=== PATIENT | female | born 1980 | race Caucasian/White ===

== ENCOUNTER 2017-01-21 14:30 | Outpatient (CLI) | payer OTHER | END 2017-01-21 14:31 | disposition home or self-care (01) | LOC: LAB.R 14:30 | PROVIDERS: ATTEND Physician Assistant Medical | DX: J02.9 Acute pharyngitis, unspecified (principal) | CPT/HCPCS: 87070 ==

== ENCOUNTER 2019-05-07 15:48 | Outpatient (CLI) | payer OTHER, MEDICAID ==
[2019-05-07 19:03] LABS: BASOPHILS # (AUTO) 0.1 10^3/uL (0.0-0.1); BASOPHILS % (AUTO) 1.4 %; EOSINOPHILS # (AUTO) 0.3 10^3/uL (0.0-0.7); EOSINOPHILS % (AUTO) 3.9 %; HGB - HEMOGLOBIN 13.5 g/dL (12.0-16.0); LYMPHOCYTES # (AUTO) 4.1 10^3/uL (1.5-3.5); LYMPHOCYTES % (AUTO) 53.2 %; MEAN CORPUSCULAR HEMOGLOBIN 28.3 pg (27.0-31.0); MEAN CORPUSCULAR HGB CONC 31.6 g/dL (32.0-36.0); MEAN CORPUSCULAR VOLUME 89.5 fL (81.0-99.0); MEAN PLATELET VOLUME 10.4 fL (7.9-10.8); MONOCYTES # (AUTO) 0.6 10^3/uL (0.0-1.0); MONOCYTES % (AUTO) 7.1 %; NEUTROPHILS # (AUTO) 2.6 10^3/uL (1.5-6.6); NEUTROPHILS % (AUTO) 34.1 %; PLT - PLATELET COUNT 342 10^3/uL (130-450); RED BLOOD COUNT 4.77 10^6/uL (4.20-5.40); RED CELL DISTRIBUTION WIDTH 13.2 % (12.0-15.0); WHITE BLOOD COUNT 7.7 x10^3/uL (4.8-10.8)
[2019-05-07 19:21] LABS: ALBUMIN 4.3 g/dL (3.2-5.5); ALBUMIN/GLOBULIN RATIO 1.2 (1.0-2.2); BILIRUBIN,TOTAL 0.5 mg/dL (0.2-1.0); CALCIUM 9.7 mg/dL (8.5-10.3); CREATININE 0.7 mg/dL (0.4-1.0)
[2019-05-07 19:24] LABS: HEMOGLOBIN A1C 0.49 g/dL; HEMOGLOBIN A1C % 5.4 % (4.6-6.2)
== END 2019-05-07 23:59 | disposition home or self-care (01) ==
LOC: LAB.WCP 15:48
PROVIDERS: ATTEND Physician Assistant
DX: R53.83 Other fatigue (principal)
CPT/HCPCS: 36415; 80053; 83036; 84443; 85025

== ENCOUNTER 2019-05-12 08:20 | Outpatient (CLI) | payer OTHER, MEDICAID ==
--- NOTE | 2019-05-14 11:42 | Ultrasound Report ---
Reason: WEIGHT LOSS, ABDOMINAL PAIN, ELEVATED LFTS Procedure Date: 05/12/2019 Accession Number: [id number] / [id number] Procedure: US - Abdomen Complete CPT Code: FULL RESULT: EXAM: ABDOMEN ULTRASOUND EXAM DATE: 05/12/2019 08:27 AM. CLINICAL HISTORY: WEIGHT LOSS, ABDOMINAL PAIN, ELEVATED LFTS. COMPARISON: ABDOMEN/PELVIS 11/24/2013 7:33 PM ABDOMEN 04/05/2012 2:48 PM. TECHNIQUE: Real-time scanning was performed with static images obtained. FINDINGS: Liver: Normal in size and heterogeneous in echotexture. 13.9 cm. Main portal vein flow: Hepatopetal. Gallbladder: Normal. No stones, wall thickening, or sonographic Vivas's sign. Biliary System: Common bile duct measures 4 mm. No intrahepatic or extrahepatic ductal dilatation. Pancreas: Imaged portion is unremarkable. Kidneys: Right: 11.3 cm longitudinally. No contour-deforming mass, stones, or hydronephrosis. Left: 12 cm longitudinally. No contour-deforming mass, stones, or hydronephrosis. Spleen: 11.9 cm. Normal in size and echotexture. Aorta and Inferior Vena Cava: Unremarkable. Other: No free fluid. IMPRESSION: Heterogeneous hepatic echotexture without focal hepatic pathology. No gallstones. Otherwise negative abdomen ultrasound. [facility]
== END 2019-05-12 08:21 | disposition home or self-care (01) ==
LOC: DI 08:20
PROVIDERS: ATTEND Physician Assistant
DX: R63.4 Abnormal weight loss (principal); R10.9 Unspecified abdominal pain; R79.89 Other specified abnormal findings of blood chemistry
CPT/HCPCS: 76700

== ENCOUNTER 2019-05-16 08:15 | Outpatient (CLI) | payer OTHER, MEDICAID ==
[2019-05-16 12:48] LABS: ALBUMIN 3.9 g/dL (3.2-5.5); ALBUMIN/GLOBULIN RATIO 1.1 (1.0-2.2); BILIRUBIN,TOTAL 0.7 mg/dL (0.2-1.0); CALCIUM 9.5 mg/dL (8.5-10.3); CREATININE 0.8 mg/dL (0.4-1.0); TOTAL PROTEIN 7.6 g/dL (6.7-8.2)
[2019-05-17 11:42] LABS: HEPATITIS B SURFACE ANTIGEN NON-REACTIVE (NON-REACTIVE); HEPATITIS C ANTIBODY NON-REACTIVE (NON-REACTIVE)
== END 2019-05-16 23:59 | disposition home or self-care (01) ==
LOC: LAB.WCP 08:15
PROVIDERS: ATTEND Physician Assistant
DX: R79.89 Other specified abnormal findings of blood chemistry (principal)
CPT/HCPCS: 36415; 80053; 86317; 86709; 86803; 87340

== ENCOUNTER 2019-05-22 15:33 | Outpatient (CLI) | payer OTHER, MEDICAID ==
[2019-05-22] MEDS ORDERED: IOVERSOL 320 50 ML VIAL ONE (15:50)
[2019-05-22] MEDS ORDERED: IOVERSOL 320 100 ML VIAL IVP ONE (15:50)
[2019-05-22] MEDS: IOVERSOL 320 50 ML VIAL PO ONE (17:15)
[2019-05-22] MEDS: IOVERSOL 320 100 ML VIAL IVP ONE (17:15)
--- NOTE | 2019-05-23 02:44 | CT Report ---
Reason: ABDOMINAL PAIN, WEIGHT LOSS Procedure Date: 05/22/2019 Accession Number: [id number] / [id number] Procedure: CT - Abdomen/Pelvis W CPT Code: FULL RESULT: EXAM: CT ABDOMEN AND PELVIS EXAM DATE: 05/22/2019 05:14 PM. CLINICAL HISTORY: ABDOMINAL PAIN, WEIGHT LOSS. COMPARISONS: ABDOMEN/PELVIS W/ 11/24/2013 7:33 PM. TECHNIQUE: Routine helical CT imaging was performed through the abdomen and pelvis. IV contrast: OPTI 320 100ML. Enteric contrast: Yes. Reconstructions: Coronal and sagittal. In accordance with CT protocol optimization, one or more of the following dose reduction techniques were utilized for this exam: automated exposure control, adjustment of mA and/or KV based on patient size, or use of iterative reconstructive technique. FINDINGS: Lung Bases: Unremarkable. Liver: Normal. No masses. Gallbladder/Bile Ducts: Unremarkable. Spleen: Normal. Pancreas: Normal. Adrenal Glands: Normal. Kidneys: Normal. No masses or hydronephrosis. Peritoneal Cavity/Bowel: Normal. No free fluid, free air or adenopathy. No masses or acute inflammatory process. There is a small hiatal hernia. There are no inflammatory changes of the colon. No evidence for appendicitis. Pelvic Organs: Normal. The bladder and visualized pelvic organs are within normal limits. Vasculature: No aneurysms or other significant abnormality. Bones: No significant abnormality. Other: None. IMPRESSION: 1. Small hiatal hernia. 2. Otherwise negative CT scan abdomen and pelvis. RAD[facility]
== END 2019-05-22 15:34 | disposition home or self-care (01) ==
LOC: DI 15:33
PROVIDERS: ATTEND Physician Assistant
DX: K44.9 Diaphragmatic hernia without obstruction or gangrene (principal)
CPT/HCPCS: 74177; Q9967

== ENCOUNTER 2019-06-25 09:53 | Day surgery (SDC) | payer OTHER, MEDICAID ==
[2019-06-25] MEDS ORDERED: fentaNYL 250 MCG/5 ML VIAL IVP ONE (09:54)
[2019-06-25] MEDS ORDERED: MIDAZOLAM 2 MG/2 ML VIAL IVP ONE (09:54)
[2019-06-25] MEDS ORDERED: LACTATED RINGERS 1,000 ML IV ONE (10:32)
[2019-06-25 10:55] LABS: HCG UR QUAL NEGATIVE
[2019-06-25] MEDS ORDERED: LIDO GARGLE 30 ML BOTTLE ONE (11:11)
[2019-06-25] MEDS ORDERED: LIDO GARGLE 30 ML BOTTLE PO ONE (11:40)
[2019-06-25 12:33] VITALS: BP 109/67
== END 2019-06-25 09:54 | disposition home or self-care (01) ==
LOC: SDS 09:53
PROVIDERS: ATTEND Internal Medicine Gastroenterology
PROC: 0DB68ZX Excision of Stomach, Via Natural or Artificial Opening Endoscopic, Diagnostic (ICD-10-PCS; 2019-06-25)
PROC: 0DB98ZX Excision of Duodenum, Via Natural or Artificial Opening Endoscopic, Diagnostic (ICD-10-PCS; principal; 2019-06-25 10:30)
DX: R10.13 Epigastric pain (principal); R63.4 Abnormal weight loss; R68.81 Early satiety; K44.9 Diaphragmatic hernia without obstruction or gangrene; F17.210 Nicotine dependence, cigarettes, uncomplicated; Z79.899 Other long term (current) drug therapy; Z68.26 Body mass index [BMI] 26.0-26.9, adult
CPT/HCPCS: 43239; 81025; A9270; J7120

== ENCOUNTER 2020-05-09 08:00 | Outpatient (CLI) | payer OTHER, MEDICAID ==
[2020-05-09 18:32] LABS: BASOPHILS # (AUTO) 0.1 10^3/uL (0.0-0.1); BASOPHILS % (AUTO) 1.1 %; EOSINOPHILS # (AUTO) 0.2 10^3/uL (0.0-0.7); EOSINOPHILS % (AUTO) 2.7 %; HGB - HEMOGLOBIN 13.7 g/dL (12.0-16.0); LYMPHOCYTES # (AUTO) 3.6 10^3/uL (1.5-3.5); LYMPHOCYTES % (AUTO) 44.1 %; MEAN CORPUSCULAR HEMOGLOBIN 30.4 pg (27.0-31.0); MEAN CORPUSCULAR HGB CONC 33.7 g/dL (32.0-36.0); MEAN CORPUSCULAR VOLUME 90.2 fL (81.0-99.0); MEAN PLATELET VOLUME 10.3 fL (7.9-10.8); MONOCYTES # (AUTO) 0.4 10^3/uL (0.0-1.0); MONOCYTES % (AUTO) 5.3 %; NEUTROPHILS # (AUTO) 3.8 10^3/uL (1.5-6.6); NEUTROPHILS % (AUTO) 46.6 %; PLT - PLATELET COUNT 322 10^3/uL (130-450); RED CELL DISTRIBUTION WIDTH 12.7 % (12.0-15.0); WHITE BLOOD COUNT 8.1 x10^3/uL (4.8-10.8)
[2020-05-09 19:37] LABS: ALBUMIN 4.4 g/dL (3.2-5.5); ALBUMIN/GLOBULIN RATIO 1.4 (1.0-2.2); ALKALINE PHOSPHATASE 61 IU/L (42-121); ALT ALANINE AMINOTRANSFERASE 19 IU/L (10-60); AST ASPARTATE AMINOTRANSFERASE 18 IU/L (10-42); BILIRUBIN,TOTAL 0.4 mg/dL (0.2-1.0); BUN - BLOOD UREA NITROGEN 10 mg/dL (6-20); CALCIUM 9.5 mg/dL (8.5-10.3); CARBON DIOXIDE - CO2 25 mmol/L (21-32); CHLORIDE 102 mmol/L (101-111); CHOL/HDL RATIO 4.9 (<4.4); CHOLESTEROL 252 mg/dL; CREATININE 0.8 mg/dL (0.4-1.0); GLUCOSE 92 mg/dL (70-100); HDL CHOLESTEROL 51 mg/dL; LDL CHOLESTEROL,CALCULATED 173 mg/dL; LDL/HDL RATIO 3.4 (<4.4); SODIUM 136 mmol/L (135-145); TOTAL PROTEIN 7.6 g/dL (6.7-8.2); VLDL CHOLESTEROL 28 mg/dL
[2020-05-09 20:15] LABS: HEMOGLOBIN A1c% 5.1 % (4.27-6.07)
== END 2020-05-09 23:59 | disposition home or self-care (01) ==
LOC: LAB.WCP 08:00
PROVIDERS: ATTEND Physician Assistant
DX: Z00.00 Encounter for general adult medical examination without abnormal findings (principal)
CPT/HCPCS: 36415; 80053; 80061; 83036; 83721; 84443; 85025

== ENCOUNTER 2020-06-02 14:56 | Outpatient (CLI) | payer OTHER, MEDICAID | END 2020-06-02 14:57 | disposition home or self-care (01) | LOC: COV 14:56 | PROVIDERS: ATTEND Family Medicine | DX: R05 Cough (principal); R09.81 Nasal congestion; Z20.828 Contact with and (suspected) exposure to other viral communicable diseases ==

== ENCOUNTER 2020-08-13 14:40 | Emergency (ER) | payer OTHER, MEDICAID ==
[2020-08-13 15:16] LABS: BASOPHILS # (AUTO) 0.1 10^3/uL (0.0-0.1); BASOPHILS % (AUTO) 1.2 %; EOSINOPHILS # (AUTO) 0.2 10^3/uL (0.0-0.7); HGB - HEMOGLOBIN 13.4 g/dL (12.0-16.0); LYMPHOCYTES # (AUTO) 3.3 10^3/uL (1.5-3.5); LYMPHOCYTES % (AUTO) 44.2 %; MEAN CORPUSCULAR HEMOGLOBIN 29.2 pg (27.0-31.0); MEAN CORPUSCULAR HGB CONC 32.2 g/dL (32.0-36.0); MEAN CORPUSCULAR VOLUME 90.6 fL (81.0-99.0); MEAN PLATELET VOLUME 9.6 fL (7.9-10.8); MONOCYTES # (AUTO) 0.5 10^3/uL (0.0-1.0); NEUTROPHILS # (AUTO) 3.4 10^3/uL (1.5-6.6); NEUTROPHILS % (AUTO) 45.5 %; PLT - PLATELET COUNT 330 10^3/uL (130-450); RED BLOOD COUNT 4.59 10^6/uL (4.20-5.40); RED CELL DISTRIBUTION WIDTH 12.8 % (12.0-15.0); WHITE BLOOD COUNT 7.4 x10^3/uL (4.8-10.8)
[2020-08-13 15:25] LABS: ALBUMIN 4.4 g/dL (3.2-5.5); ALBUMIN/GLOBULIN RATIO 1.4 (1.0-2.2); BILIRUBIN,TOTAL 0.4 mg/dL (0.2-1.0); CALCIUM 9.5 mg/dL (8.5-10.3); CREATININE 0.8 mg/dL (0.4-1.0); TOTAL PROTEIN 7.5 g/dL (6.7-8.2)
--- NOTE | 2020-08-13 16:25 | ED Physician Documentation ---
History of Present Illness - Stated complaint Stated Complaint: L SIDE HIP PX - Chief complaint Chief Complaint: Abd Pain - History obtained from History obtained from: Patient - Additonal information Additional information: 39-year-old Female presents to the emergency department for evaluation of 3 days acute intermittent left lower quadrant abdominal pain. It comes in waves and is associated with not she is unable to elicit triggers for the pain but when it happens it is sudden and unrelenting. Denies any dysuria urgency or frequency. She is currently on her menstrual cycle. She does have a history of endometriosis as well as right adnexa removal secondary to the endometriosis and sequelae. She was seen at urgent care and advised to come to the emergency department for imaging. Review of Systems Constitutional: reports: Reviewed and negative Ears: reports: Reviewed and negative Throat: reports: Reviewed and negative Cardiac: reports: Reviewed and negative Respiratory: reports: Reviewed and negative GI: reports: Abdominal Pain, Nausea. 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, Tubal ligation - Present Medications Home Medications: Ambulatory Orders Medication Instructions Recorded Confirmed Bupropion HCl [Wellbutrin Xl] 300 mg PO DAILY 06/20/19 08/13/20 ALPRAZolam [Xanax] 0.25 mg ORAL DAILY PRN 08/13/20 08/13/20 - Allergies Allergies/Adverse Reactions: Allergies Allergy/AdvReac Type Severity Reaction Status Date / Time amitriptyline [From Elavil] AdvReac Unknown Verified 08/13/20 14:45 escitalopram [From Lexapro] AdvReac Unknown Verified 08/13/20 14:45 fluoxetine [From Prozac] AdvReac Nausea Verified 08/13/20 14:45 - Social History Does the pt smoke?: Yes Smoking Status: Current every day smoker Does the pt drink ETOH?: No Does the pt have substance abuse?: No - Immunizations Immunizations are current?: Yes - POLST Patient has POLST: No PD ED PE NORMAL - General General: Alert and oriented X 3, No acute distress - HEENT HEENT: PERRL - Cardiac Cardiac: RRR, No murmur - Respiratory Respiratory: Clear bilaterally - Abdomen Abdomen: Normal bowel sounds, Soft, Non distended. No: Non tender (Mild tenderness without guarding or rebound left lower quadrant of abdomen.) - Back Back: No CVA TTP - Derm Derm: Normal color, Warm and dry, No rash - Extremities Extremities: No deformity, No tenderness to palpate Results - Vitals Vitals: Vital Signs - 24 hr 08/13/20 08/13/20 14:45 17:05 Temperature 36.5 C 36.8 C Heart Rate 101 H 78 Respiratory 18 18 Rate Blood Pressure 133/83 H 131/76 H O2 Saturation 99 99 Oxygen O2 Source Room air - Labs Labs: Laboratory Tests 08/13/20 08/13/20 08/13/20 15:07 15:07 16:47 WBC 7.4 RBC 4.59 Hgb 13.4 Hct 41.6 MCV 90.6 MCH 29.2 MCHC 32.2 RDW 12.8 Plt Count 330 MPV 9.6 Neut # (Auto) 3.4 Lymph # (Auto) 3.3 [place] # (Auto) 0.5 Eos # (Auto) 0.2 Baso # (Auto) 0.1 Absolute Nucleated RBC 0.00 Nucleated RBC % 0.0 Sodium 138 Potassium 3.7 Chloride 105 Carbon Dioxide 25 Anion Gap 8.0 BUN 8 Creatinine 0.8 Estimated GFR (MDRD) 80 L Glucose 108 H Calcium 9.5 Total Bilirubin 0.4 AST 19 ALT 18 Alkaline Phosphatase 61 Total Protein 7.5 Albumin 4.4 Globulin 3.1 Albumin/Globulin Ratio 1.4 Lipase 34 Urine Color YELLOW Urine Clarity CLEAR Urine pH 6.5 Ur Specific [place] 1.015 Urine Protein NEGATIVE Urine Glucose (UA) NEGATIVE Urine Ketones NEGATIVE Urine Occult Blood NEGATIVE Urine Nitrite NEGATIVE Urine Bilirubin NEGATIVE Urine Urobilinogen 0.2 (NORMAL) Ur Leukocyte Esterase NEGATIVE Ur Microscopic Review NOT INDICATED Urine Culture Comments NOT INDICATED Urine HCG, Qual NEGATIVE - Rads (name of study) CT abd Radiology: Final report received (CT of the abdomen and pelvis without acute abnormalities to explain patient's pain. Normal appendix. Small hiatal hernia.) PD MEDICAL DECISION MAKING - ED course Complexity details: reviewed results, re-evaluated patient, considered differential, d/w patient ED course: 39-year-old female presents the emergency department for evaluation of acute left abdominal pain. She is had no fevers or vomiting. However she does have a history of endometriosis. Screening labs show no leukocytosis or significant electrolyte abnormality. No findings of infection in the urine. CT of the abdomen showed no acute findings. These findings were discussed with the patient. Given her history of endometriosis this may be a flare of this. I do recommend ibuprofen at home for control of her pain. She was given Toradol here in the emergency department with good relief of pain. Discussed return precautions that would include suddenly severe worsening pain, uncontrolled vomiting or high fevers. Departure - Departure Disposition: Home, Self Care Clinical Impression: Lower abdominal pain Condition: Stable Record reviewed to determine appropriate education?: Yes Instructions: ED Abdominal Pain Unkn Cause Comments: Seth ch were seen in the emergency department today for lower abdominal pain. Your labs are all essentially unremarkable. The CT of your abdomen did not show any worrisome findings. This pain may be related to your history of endometriosis. I do recommend that you take Tylenol or ibuprofen at home for pain. Discussed this emergency department visit with your primary care provider or OB. Return to the emergency department if you develop fevers, have uncontrolled vomiting suddenly severe or different abdominal pain.
[2020-08-13] MEDS ORDERED: IOVERSOL 320 100 ML VIAL IVP ONE ×2 (16:39→19:40)
[2020-08-13 17:00] LABS: BILIRUBIN,URINE NEGATIVE (NEGATIVE); GLUCOSE, URINE (UA) NEGATIVE (NEGATIVE); KETONES,URINE (UA) NEGATIVE (NEGATIVE); LEUKOCYTE ESTERASE, URINE NEGATIVE (NEGATIVE); NITRITE,URINE NEGATIVE (NEGATIVE); OCCULT BLOOD,URINE NEGATIVE (NEGATIVE); PH,URINE 6.5 PH (5.0-7.5); PROTEIN,URINE NEGATIVE (NEGATIVE); UROBILINOGEN,URINE 0.2 (NORMAL) E.U./dL (NORMAL)
[2020-08-13 17:07] LABS: CLARITY,URINE CLEAR (CLEAR); HCG UR QUAL NEGATIVE
--- NOTE | 2020-08-13 18:11 | CT Report ---
PROCEDURE: Abdomen/Pelvis W INDICATIONS: LLQ abdominal pain CONTRAST: IV CONTRAST: Optiray 320 ml: 100 PO CONTRAST: *NO PO CONTRAST TECHNIQUE: After the administration of weight appropriate dose of intravenous contrast, 5 mm thick sections acqu ired from the diaphragms to the symphysis. 5 mm thick coronal and sagittal reformats were acquired. For radiation dose reduction, the following was used: automated exposure control, adjustment of mA and/or kV according to patient size. COMPARISON: 05/22/2019. FINDINGS: Image quality: Excellent. ABDOMEN: Lung bases: Lung bases are clear. Heart size is normal. Small hiatal hernia Solid organs: Liver and spleen are normal in size and enhancement. Gallbladder is partially decompr essed but otherwise unremarkable. Biliary system is non dilated. Pancreas enhances normally. No ad renal nodules. Kidneys demonstrate normal size and enhancement, without hydronephrosis. Peritoneum and bowel: Bowel loops demonstrate normal wall thickness and caliber. No free fluid or a ir. Normal appendix. Nodes and vessels: No retroperitoneal or mesenteric adenopathy by size criteria. Aorta and inferior vena cava are normal in size. Miscellaneous: No ventral hernias. PELVIS: Genitourinary: Bladder wall thickness is normal. Miscellaneous: No inguinal hernias or adenopathy. Bones: No suspicious bony lesions. No acute vertebral body compression fractures. IMPRESSION: Stable CT abdomen and pelvis without acute abnormalities to explain patient's pain. Normal appendix. Small hiatal hernia. Reviewed by: Rod Bower MD on 08/13/2020 6:10 PM PST Approved by: Rod Bower MD on 08/13/2020 6:10 PM PST Station ID: [id number]
[2020-08-13] MEDS ORDERED: KETOROLAC 30 MG/ML VIAL IVP STA (18:31)
[2020-08-13 19:03] VITALS: BP 135/82
== END 2020-08-13 18:40 | disposition home or self-care (01) ==
LOC: ED 14:40
DX: R10.32 Left lower quadrant pain (principal); N80.9 Endometriosis, unspecified; F17.200 Nicotine dependence, unspecified, uncomplicated
CPT/HCPCS: 36415; 74177; 80053; 81003; 81025; 83690; 85025; 99284; Q9967; 81001; 87086

== ENCOUNTER 2020-10-03 14:00 | Outpatient (CLI) | payer OTHER, MEDICAID ==
[2020-10-03 14:25] LABS: BASOPHILS # (AUTO) 0.1 10^3/uL (0.0-0.1); BASOPHILS % (AUTO) 1.5 %; EOSINOPHILS # (AUTO) 0.3 10^3/uL (0.0-0.7); EOSINOPHILS % (AUTO) 3.3 %; HCT - HEMATOCRIT 41.2 % (37.0-47.0); HGB - HEMOGLOBIN 13.5 g/dL (12.0-16.0); LYMPHOCYTES # (AUTO) 3.7 10^3/uL (1.5-3.5); MEAN CORPUSCULAR HEMOGLOBIN 29.3 pg (27.0-31.0); MEAN CORPUSCULAR HGB CONC 32.8 g/dL (32.0-36.0); MEAN CORPUSCULAR VOLUME 89.4 fL (81.0-99.0); MEAN PLATELET VOLUME 9.5 fL (7.9-10.8); MONOCYTES # (AUTO) 0.5 10^3/uL (0.0-1.0); NEUTROPHILS # (AUTO) 3.5 10^3/uL (1.5-6.6); NEUTROPHILS % (AUTO) 43.1 %; PLT - PLATELET COUNT 339 10^3/uL (130-450); RED BLOOD COUNT 4.61 10^6/uL (4.20-5.40); RED CELL DISTRIBUTION WIDTH 12.9 % (12.0-15.0); WHITE BLOOD COUNT 8.1 x10^3/uL (4.8-10.8)
[2020-10-03 14:38] LABS: ALBUMIN 4.2 g/dL (3.2-5.5); ALBUMIN/GLOBULIN RATIO 1.3 (1.0-2.2); BILIRUBIN,TOTAL 0.3 mg/dL (0.2-1.0); CALCIUM 9.2 mg/dL (8.5-10.3); CREATININE 0.8 mg/dL (0.4-1.0); POTASSIUM 3.6 mmol/L (3.5-5.0); TOTAL PROTEIN 7.5 g/dL (6.7-8.2)
== END 2020-10-03 14:01 | disposition home or self-care (01) ==
LOC: LAB 14:00
PROVIDERS: ATTEND Obstetrics & Gynecology
DX: Z01.812 Encounter for preprocedural laboratory examination (principal); N94.0 Mittelschmerz
CPT/HCPCS: 36415; 80053; 85025

== ENCOUNTER 2020-10-08 06:51 | Day surgery (SDC) | payer BC, OTHER, MEDICAID ==
[2020-10-08] MEDS ORDERED: GABAPENTIN 400 MG CAPSULE ONE (06:53)
[2020-10-08] MEDS ORDERED: ACETAMINOPHEN 1,000 MG/100 ML 100 ML IV ONE (06:54)
[2020-10-08] MEDS ORDERED: CELECOXIB 100 MG CAPSULE PO ONE (06:54)
[2020-10-08] MEDS ORDERED: ceFAZolin 2 GM/50 ML 2 GM/50 ML BAG IV ONE (06:54)
[2020-10-08] MEDS ORDERED: LACTATED RINGERS 1,000 ML IV ONE ×2 (07:10→10:04)
[2020-10-08] MEDS ORDERED: LIDOCAINE 2%-EPI 1:100000 20 ML MDV ONE (07:20)
[2020-10-08] MEDS ORDERED: SILVER NITRATE APPLICATOR TOP ONE (07:20)
[2020-10-08] MEDS ORDERED: BUPIVACAINE 0.5% PF 30 ML VIAL ONE (07:20)
[2020-10-08 07:24] LABS: HCG UR QUAL NEGATIVE
--- NOTE | 2020-10-08 07:47 | ANESTHESIA ---
Pre-Anesthesia VS, & Labs - Diagnosis mary - Procedure Laparoscopic Oophorectomy Vital Signs: Temp Pulse Resp BP Pulse Ox 36.6 C 100 16 135/79 H 98 10/08/20 07:00 10/08/20 07:00 10/08/20 07:00 10/08/20 07:00 10/08/20 07:00 Height: 5 ft 8 in Weight (kg): 89 kg Body Mass Index: 29.8 BMI Classification: Overweight - NPO >8 hours - Is Patient ?: No - Lab Results Current Lab Results: Laboratory Tests 10/08/20 07:17: POC Whole Bld Glucose 88 Lab results reviewed: Yes Home Medications and Allergies Bupropion HCl [Wellbutrin Xl] 300 mg PO DAILY 06/20/19 ALPRAZolam [Xanax] 0.25 mg ORAL DAILY PRN 08/13/20 Allergies/Adverse Reactions: Allergies Allergy/AdvReac Type Severity Reaction Status Date / Time amitriptyline [From Elavil] AdvReac rapid Verified 10/08/20 07:15 weight gain escitalopram [From Lexapro] AdvReac Unknown Verified 10/08/20 07:15 fluoxetine [From Prozac] AdvReac Nausea Verified 10/08/20 07:15 oxycodone [From Percocet] AdvReac Nausea Verified 10/08/20 07:15 Anes History & Medical History - Anesthetic History Anesthesia Complications: reports: No previous complications Family history of Anesthesia Complications: Denies Family history of Malignant Hyperthermia: Denies - Medical History Cardiovascular: reports: High cholesterol Pulmonary: reports: None Gastrointestinal: reports: GERD, Hiatal hernia Urinary: reports: None Musculoskeletal: reports: Osteoarthritis Endocrine/Autoimmune: reports: None Skin: reports: Eczema Smoking Status: Current every day smoker - Surgical History Gynecologic: reports: Dilation and currettage, Tubal ligation Exam General: Alert, Oriented x3, Cooperative, No acute distress Dental: WNL Mouth Openin Fingerbreadth Neck Mobility: Normal Mallampati classification: I Respiratory: Lungs clear, Normal breath sounds, No respiratory distress, No accessory muscle use Cardiovascular: Regular rate, Normal S1, Normal S2, No murmurs Plan Anesthesia Type: General Consent for Procedure(s) Verified and Reviewed: Yes Code Status: Attempt Resuscitation ASA classification: 2-Mild systemic disease Is this case an emergency?: No
[2020-10-08] MEDS ORDERED: BUPIVACAINE 0.5% PF 30 ML VIAL INFIL ONE ×2 (08:00→09:41)
[2020-10-08] MEDS ORDERED: LIDOCAINE 2%-EPI 1:100000 20 ML MDV SUBQ ONE ×2 (08:00→09:41)
[2020-10-08 08:06] LABS: B. PARAPERTUSSIS- RESP PCR PAN NOT DETECTED; B. PERTUSSIS- RESP PCR PANEL NOT DETECTED; C. PNEUMONIAE- RESP PCR PANEL NOT DETECTED; CORONAVIRUS 229E-RESP PCR NOT DETECTED; CORONAVIRUS HKU1-RESP PCR NOT DETECTED; CORONAVIRUS NL63-RESP PCR NOT DETECTED; CORONAVIRUS OC43-RESP PCR NOT DETECTED; HUMAN METAPNEUMOVIRUS NOT DETECTED; INFLUENZA A- RESP PCR PANEL NOT DETECTED; INFLUENZA B - RESP PCR PANEL NOT DETECTED; M. PNEUMONIAE- RESP PCR PANEL NOT DETECTED; PARAINFLUENZA VIRUS 1 NOT DETECTED; PARAINFLUENZA VIRUS 2 NOT DETECTED; PARAINFLUENZA VIRUS 3 NOT DETECTED; PARAINFLUENZA VIRUS 4 NOT DETECTED; RHINOVIRUS/ENTEROVIRUS NOT DETECTED; RSV- RESP PCR PANEL NOT DETECTED; SARS-CoV-2 -RESP PCR PANEL NOT DETECTED
[2020-10-08] MEDS ORDERED: MIDAZOLAM 2 MG/2 ML VIAL ONE (08:19)
[2020-10-08] MEDS ORDERED: LIDOCAINE-MPF 2% 5 ML VIAL ONE (08:19)
[2020-10-08] MEDS ORDERED: fentaNYL 100 MCG/2 ML VIAL ONE (08:19)
[2020-10-08] MEDS ORDERED: ROCURONIUM 50 MG/5 ML VIAL ONE (08:19)
[2020-10-08] MEDS ORDERED: PROPOFOL 200 MG/20 ML VIAL IVP ONE (08:19)
[2020-10-08] MEDS ORDERED: fentaNYL 100 MCG/2 ML VIAL IVP PRN (08:29)
[2020-10-08] MEDS ORDERED: HYDROmorphone 0.5 MG/0.5 ML SYRINGE IVP PRN (08:29)
[2020-10-08] MEDS ORDERED: ePHEDrine 50 MG/ML VIAL IVP PRN (08:29)
[2020-10-08] MEDS ORDERED: NALOXONE 0.4 MG/ML VIAL IVP PRN (08:29)
[2020-10-08] MEDS ORDERED: METOCLOPRAMIDE 10 MG/2 ML VIAL IVP PRN (08:29)
[2020-10-08] MEDS ORDERED: ATROPINE ABBOJECT 1 MG/10 ML SYRINGE IVP PRN (08:29)
[2020-10-08] MEDS ORDERED: ONDANSETRON 4 MG/2 ML VIAL IVP PRN ×2 (08:29→10:00)
[2020-10-08] MEDS ORDERED: MORPHINE 2 MG/ML CARPUJECT IVP PRN (08:29)
[2020-10-08] MEDS ORDERED: LACTATED RINGERS 1,000 ML IV SCH (09:00)
[2020-10-08] MEDS ORDERED: DEXAMETHASONE 4 MG/ML VIAL ONE (09:13)
[2020-10-08] MEDS ORDERED: ONDANSETRON 4 MG/2 ML VIAL ONE ×2 (09:13→10:27)
--- NOTE | 2020-10-08 09:53 | OPERATIVE REPORT ---
Operative Report - General Procedure Date: 10/08/20 Planned Procedure: Laproscopic right Oopherectomy Pre-Op Diagnosis: Recurrent right ovulatory pain. Procedure Performed: Laproscopic right Oopherectomy with cervical polypectomy - Procedure Note Primary Surgeon: Elver Lynn MD Secondary Surgeon: Bushra Oconnell MD Anesthesia Provider: Seamus Hunter CRNA Anesthesia Technique: General ET tube Pathology: Right Ovary, cervical polyp IV Fluids (mL): 800 Estimated Blood Loss (mL): 5
[2020-10-08] MEDS ORDERED: GLYCOPYRROLATE 1 MG/5 ML VIAL ONE (09:57)
[2020-10-08] MEDS ORDERED: NEOSTIGMINE 1 MG/1 ML 10 ML MDV ONE (09:57)
[2020-10-08] MEDS ORDERED: HYDROmorphone 1 MG/ML CARPUJECT ONE ×2 (09:58→10:44)
[2020-10-08] MEDS ORDERED: HYDROcod/ACETAM 10 MG/325 MG TABLET PO PRN (10:00)
[2020-10-08] MEDS ORDERED: LORazepam 2 MG/ML VIAL IVP PRN (10:00)
--- NOTE | 2020-10-08 10:20 | OPERATIVE REPORT ---
DATE OF SERVICE: 10/08/2020 Physician: Elver Lynn MD PREOPERATIVE DIAGNOSIS: Recurrent right ovulatory pain. POSTOPERATIVE DIAGNOSIS: Right ovulatory pain with cervical polyp. PROCEDURE: Right salpingo-oophorectomy with cervical polypectomy. SURGEON: Elver Lynn MD BRUSHER HAND: Melinda Oconnell MD ANESTHESIA: Arielle Hunter CRNA ANESTHETIC: General via ET tube. ESTIMATED BLOOD LOSS: 5 mL. INTRAVENOUS FLUIDS: 800 mL. FINDINGS: Upon entering the abdominal cavity, the left tube and ovary appeared to be free of disease. The right ovary also was unremarkable. There was appendix as well as ureter, which were easily visualized on the right-hand side. Upon placing the speculum, there was evidence of a roughly 8 mm cervical polyp, which was removed with polyp forceps. PROCEDURE: Following adequate endotracheal anesthesia, the patient was placed in dorsal lithotomy position. Pelvic examination under anesthesia was performed. At this point, she was prepped and draped in the usual fashion. A timeout was performed, in which concerns were addressed. A speculum was placed in the vagina. The cervix was visualized. There was evidence of an 8 mm maximal diameter cervical polyp. This was removed with polyp forceps. At this point, the cervix and uterus were noted to be retroverted, and the uterus was dilated up to size 8 Hegar dilators. A HUMI catheter was then placed in the retroverted position and then rotated forward. The lateral fornices were both injected with 5 mL of 0.25% Marcaine with epinephrine as well as 1% lidocaine. At this point, the plating tank operator's gloves were changed, and a stab was made in the subumbilical region. Local anesthesia with Marcaine, lidocaine, and epinephrine was injected here also. The 5 mm trocar was placed under first pass without difficulty. Two additional ports were placed, both in the left and right lower quadrants. These were done following local anesthesia with 0.25% Marcaine with epinephrine as well as 1% lidocaine. The pelvis was inspected. The left tube and ovary appeared to be free of disease. The right tube and ovary did not show any ovulatory cysts at this time. The ureter was identified to decrease the risk of injury. The appendix also appeared to be normal. Then the ovary on the right-hand side was grasped. The infundibulopelvic ligament was cauterized 3 times and then transected with the LigaSure. The mesosalpinx was cauterized and transected with the LigaSure as well as the uteroovarian ligament being cauterized and transected with the LigaSure. Care was taken to make sure there was excellent hemostasis, and there was no evidence of any bleeding. The right lower quadrant incision was then extended with a pion, and then a skin incision with a #11 blade was utilized. An 11 mm port was then placed, and an EndoCatch bag was inserted. The ovary was placed in the EndoCatch bag, and the ovary was removed through the abdominal wall on the right-hand side. At this point, a Clyde-Jay was used to close the fascia on the right-hand side. The HUMI was then removed from the cervix, and the incision sites were then all closed with 4-0 Monocryl following removal of the ports as well as allowing the CO2 gas to escape. Patient tolerated the procedure well and was taken to recovery in stable condition. Throughout the procedure, Dr. Oconnell was instrumental in giving excellent retraction to give good visualization to minimize the risk of injury to the ureter as well as the surrounding tissue. TD: 10/08/2020 10:02 asif SPARROW
--- NOTE | 2020-10-08 10:24 | ANESTHESIA POST OP EVALUATION ---
Anesthesia Post Eval - Post Anesthesia Eval Vitals: Last Vital Signs Temp 36.8 C 10/08/20 10:15 Pulse 101 H 10/08/20 10:20 Resp 16 10/08/20 10:20 BP 133/81 H 10/08/20 10:20 Pulse Ox 98 10/08/20 10:20 CV Function Including HR & BP: positive: Stable Pain Control: positive: Satisfactory Nausea & Vomiting: positive: Negative Mental Status: positive: Baseline Respiratory Status: Airway Patent Hydration Status: Satisfactory Anesthesia Complications: positive: None
[2020-10-08] MEDS ORDERED: HYDROcod/ACETAM 5/325 MG TABLET ONE (11:23)
[2020-10-08 11:42] VITALS: BP 129/81
[2020-10-08] MEDS ORDERED: ONDANSETRON ODT 4 MG TABLET ONE (12:12)
[2020-10-08] MEDS ORDERED: ONDANSETRON ODT 4 MG TABLET TL ONE (15:00)
== END 2020-10-08 06:52 | disposition home or self-care (01) ==
LOC: SDS 06:51
PROVIDERS: ATTEND Obstetrics & Gynecology
PROC: 0UBC7ZZ Excision of Cervix, Via Natural or Artificial Opening (ICD-10-PCS; 2020-10-08)
PROC: 0UT04ZZ Resection of Right Ovary, Percutaneous Endoscopic Approach (ICD-10-PCS; principal; 2020-10-08 08:30)
DX: N94.0 Mittelschmerz (principal); N84.1 Polyp of cervix uteri; N85.4 Malposition of uterus; Z20.822 Contact with and (suspected) exposure to COVID-19; F17.210 Nicotine dependence, cigarettes, uncomplicated; E66.3 Overweight; Z68.29 Body mass index [BMI] 29.0-29.9, adult
CPT/HCPCS: 0202U; 57500; 58661; 81025; A9270; J0131; J0690; J1170; J7120; Q0162

== ENCOUNTER 2024-02-08 09:15 | Outpatient (CLI) | payer OTHER ==
--- NOTE | 2024-02-08 17:38 | XRAY Report ---
PROCEDURE: Chest 2V INDICATIONS: ACUTE COUGH TECHNIQUE: 2 views of the chest were acquired. COMPARISON: 03/03/2020. FINDINGS: Surgical changes and devices: None. Lungs and pleura: No pleural effusions or pneumothorax. Lungs are clear. Mediastinum: Mediastinal contours appear normal. Heart size is normal. Bones and chest wall: No suspicious bony lesions. Overlying soft tissues appear unremarkable. IMPRESSION: No acute cardiopulmonary process. Reviewed by: Saji Todd MD on 02/08/2024 5:36 PM PDT Approved by: Saji Todd MD on 02/08/2024 5:36 PM PDT Station ID: [id number]
== END 2024-02-08 09:30 | disposition home or self-care (01) ==
LOC: DI.N 09:15
PROVIDERS: ATTEND Physician Assistant Medical
DX: R05.1 Acute cough (principal)